=== PATIENT | male | born 1940 | race Hispanic/Latino ===

== ENCOUNTER 2017-05-10 20:58 | Emergency (ER) | payer MEDICARE ==
[2017-05-10] MEDS ORDERED: cefTRIAXone\\ROCEPHIN 1 GM VIAL ONE (21:58)
== END 2017-05-10 22:15 | disposition home or self-care (01) ==
LOC: NAV ERS 20:58
DX: J01.90 Acute sinusitis, unspecified (principal)
CPT/HCPCS: 87081; 87430; 96372; J0696